=== PATIENT | male | born 1980 | race Caucasian/White ===

== ENCOUNTER 2024-10-21 19:07 | Emergency (ER) | payer SELFPAY ==
[2024-10-21 19:17] VITALS: BP 142/92; PULSE 104; RESP 18; TEMP 36.4; O2SAT 98
[2024-10-21 19:41] VITALS: BP 142/96; PULSE 86; RESP 26; O2SAT 100
--- OUTSIDE RECORDS SUMMARY | 2024-10-21 20:25 | XMS_ITS | Continuity of Care Document ---
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 Name Role Phone Khadar Garner MD, MD Unavailable Unavailable Allergies, Adverse Reactions, Alerts Substance Reaction Status Criticality No Known Allergies Active No Inform ation Medications Medication Instructions Dosage Effective Dates (start - stop) Status Comments tramadol 50 mg tablet take 1-2 tablet by oral route every 6 hours as needed - Active [place] 5 mg-325 mg tablet - Active Procedures Procedure Date Office/outpatient visit,[facility] 2017 MRI lower extrm joint, w/o contrast Office/outpatient visit,new, [facility] 2017 Disability Form Advance Directives Directive Yes / No Effective Date File Name No Information Encounters Encounter Description Practice Location Reason(s) For Visit Diagnoses Date Provider Providers Copied on Encounter [facility], [address] [place] [address], [id number], [place] tel:[phone] [facility] No Information [address]. [address], [place] [address], [place], [place], [id number] , [place]. tel: [phone] Office/outpat ient visit,est, mod [facility], [address], [id number], [place] tel:[phone] [facility] r knee (chief complaint) Chondromalacia patellae, right knee 8 [address]. [address], [address], [place], [place], [id number] , [place]. tel:[phone] Referring Provider: Khadar Saini, [address] [place] [address] [address], [place], [address] . tel:[phone] [facility], [address] [place] [address], [id number], [place] tel:[phone] [facility] Pain in right knee 8 [facility]. [address] [place] [address], [address], [place], [place], [id number] , [place]. tel:[phone] Referring Provider: Khadar Saini, [address] [place] [address] [address], [place], [address] . tel:[phone] Office/outpat ient visit,[facility], [facility], [address] [place] [address], [place], [place], [id number], [place] tel:[phone] [facility] r knee (chief complaint) Pain in right knee 8 [address]. [address] [place] [address], [address], [place], [place], [id number] , [place]. tel:[phone] [facility], [address] [place] [address], [id number], [place] tel:[phone] [facility] No Information [address]. [address] [place] [address], [address], [place], [place], [id number] , [place]. tel:[phone] Family History Family Member Type Diagnosis Age At Onset Father Problem (finding) Cancer, unknown Payers Payer name Insurance type Covered republican ID [employer] [id number] Social History Type Description Quantity Date Captured Comments Alcohol Use Details Unknown Caffeine Use Details Unknown Tobacco Use Status No Information Smoking Status No Information Sex Male Chief Complaint And Reason For Visit No Information Reason For Referral Reason For Referral No Information Plan Of Treatment Date Type Action Status Referral Ordered: MRI lower extrm joint, w/o contrast RT knee Appointment date/timeframe: 12/24/2017 ordered History Of Present Illness Encounter Date Complaint History Of Prese nt Illness r knee patient presents to the office today for follow up right knee mri results. r knee patient presents to the office today for evaluation of right knee pain Functional Status Date Functional Assessmen t No Information Instructions Date Instruction Additional Infor mation No Information Assessments Type Assessment Date No Information Patient Care Teams Name Effective Dates (start - stop) Status Members No Information
--- NOTE | 2024-10-21 20:39 | ED_ITS ---
HPI - Wound/Laceration General Chief Complaint: Wound/Laceration Stated Complaint: spider bite to scalp Time Seen by Provider: 10/21/24 19:43 History of Present Illness HPI narrative: 44-year-old otherwise healthy male presenting to the emergency depart with an abscess to his posterior scalp that has been progressing over last few days. He states he got bit by a spider on 10/16/2024. Since that he has noticed that he has had some progressive swelling in the area now having some pus draining from a lesion presumably the bite site. Subjective fever and chills today. Otherwise been in his normal state of health. Tested positive for strep several weeks ago and completed a course of amoxicillin for this. Denies any traumatic injuries. Not sure what, spider bit him. Does have an area of induration with red erythema and scabbing w/ minimal purulence in the posterior left-sided occipital scalp. Related Data Allergies Allergy/AdvReac Type Severity Reaction Status Date / Time No Known Allergies Allergy Verified 10/21/24 19:21 Review of Systems Review of Systems: As reviewed above in HPI Exam Narrative: GENERAL: [Well-appearing, well-nourished, and in no acute distress.] HEAD: Normocephalic, area of induration with red erythema and scabbing w/ minimal purulence in the posterior left-sided occipital scalp approximately 2 x 2 cm with tenderness to palpation and blanching erythema, some fluctuance noted. EYES: [PERRLA and EOMI.] ENT: Nares clear, no rhinorrhea or epistaxis. Mucous membranes moist. NECK: Supple. CHEST: [Clear to auscultation. No respiratory distress.] HEART: [Regular rate and rhythm]. No murmur heard. [Normal peripheral pulses.] ABDOMEN: [Soft, nondistended], [nontender], [No rigidity or guarding] EXTREMITIES: Normal range of motion. [No edema.] SKIN: Warm, dry, no rash. NEURO: [No focal deficits]. Alert and oriented [x3.] PSYCH: [Normal mood and affect.] Course Vital Signs Vital signs: Vital Signs Temperature 36.4 C L 10/21/24 19:17 Pulse Rate 104 H 10/21/24 19:17 Respiratory Rate 18 10/21/24 19:17 Blood Pressure 142/92 H 10/21/24 19:17 Pulse Oximetry 98 10/21/24 19:17 Oxygen Delivery Room Air 10/21/24 19:17 Temperature 36.4 C L 10/21/24 19:17 Pulse Rate 86 10/21/24 19:41 Respiratory Rate 26 H 10/21/24 19:41 Blood Pressure 142/96 H 10/21/24 19:41 Pulse Oximetry 100 10/21/24 19:41 Oxygen Delivery Room Air 10/21/24 19:17 Procedures Abscess I/D scalp: Date of Incision: 10/21/24 Time of Incision: 21:49 Side (if applicable): left Sedation/analgesia: none Local Anesthetic: lidocaine 2% Amount of anesthesia used (mL): 5 Technique: incised with #11 blade and probed loculations Amount of fluid expressed (mL): 5 Irrigation: Yes Packing used?: none I&D Results: Pus and Blood Abcess I&D Additional Comments: Mixture of purulent material as well as minor blood. Hemostatic with pressure. Washed multiple times with pressure washing with normal saline with return of clear fluid mixed with blood. Pus have been expressed and loculations probe. None of significant area for iodoform packing. Left open for secondary intention healing, non adhering dressing and triple antibiotic ointment placed on top. MDM - Wound/Laceration MDM Narrative Medical decision making narrative: 44-year-old otherwise healthy male presenting to the emergency depart with an abscess to his posterior scalp that has been progressing over last few days. He states he got bit by a spider on 10/16/2024. Since that he has noticed that he has had some progressive swelling in the area now having some pus draining from a lesion presumably the bite site. Subjective fever and chills today. Otherwise been in his normal state of health. Tested positive for strep several weeks ago and completed a course of amoxicillin for this. Denies any traumatic injuries. Not sure what, spider bit him. Does have an area of induration with red erythema and scabbing w/ minimal purulence in the posterior left-sided occipital scalp approximately 2 x 2 cm with tenderness to palpation and blanching erythema, some fluctuance noted. Patient's symptomatology consistent with a posterior scalp abscess likely secondary to the spider bite. No signs of streaking redness or lymphatic spread. Vital signs showed no tachycardia or fever. Blood pressure mildly elevated but not severe range. Saturating 100% on room air. Discussed options and treatment course with the patient including antibiotics versus incision and drainage. Patient was comfortable with proceeding with incision and drainage here in the emergency department. Lidocaine used for local anesthesia in a ring block and abscess was incised and drained. He was placed on Bactrim for antibiotics. Patient tolerated I and D well, express purulent material with good result. Left open for secondary intention, topical antibiotic ointment and non adherent dressing applied over top, sent home with wound care supplies, instructions for Tylenol ibuprofen and antibiotics for 10 days. Given return precautions and follow-up instructions. Discharge Plan Discharge Clinical Impression: Abscess of scalp, Encounter for incision and drainage procedure Patient Disposition: Home Condition: Stable Instructions: Antibiotic Form, Abscess Incision and Drainage (DC) Additional Instructions: We have drained your scalp abscess here with good result. We will send you home with 10 days of oral antibiotics. Keep the area covered with gauze and antibiotic ointment. Change the dressings several times a day as they get dirty. Take Tylenol or ibuprofen alternating every 6-8 hours. Follow-up with a primary care provider. Return with worsening signs of infection, nonhealing wound, fevers at home or any other concerns. Patient Language: Citizen Of [place] Prescriptions: New sulfamethoxazole-trimethoprim [Bactrim DS] 800-160 mg tablet 1 tablet PO Q12H Qty: 14 0RF acetaminophen [Tylenol Extra Strength] 500 mg tablet 1,000 mg PO TID PRN (Reason: pain) Qty: 30 0RF ibuprofen 600 mg tablet 600 mg PO TID PRN (Reason: pain) Qty: 20 0RF Follow-up/Referrals: PHYSICIAN,RETAIL ADVERTISING SALES MANAGER [Primary Care Provider] - Duran Pace MD [Physician] - 1 Week (PCP establish) Time of Disposition: 21:53
[2024-10-21] MEDS: SULFAMETHOXAZOLE/TRIMETHOPRIM 800/160 MG DS TABLET 1 TAB PO (20:46)
[2024-10-21] MEDS: ACETAMINOPHEN 500 MG TABLET 1000 MG PO (20:49)
[2024-10-21] MEDS: IBUPROFEN 400 MG TABLET 800 MG PO (21:48)
--- NOTE | 2024-10-21 22:06 | PC.NURSE ---
Patient given multiple non-adherent dressings, gauze, anitbiotic cream and tape and educated on dressing changes at home.
== END 2024-10-21 22:08 | disposition home or self-care (01) ==
PROVIDERS: Emergency Provider Student in an Organized Health Care Education/Training Program
DX: L02.811 Cutaneous abscess of head [any part, except face] (principal)
CPT/HCPCS: 10060; 99283; A9270